=== PATIENT | male | born 1990 | race Caucasian/White ===

== ENCOUNTER 2017-07-25 05:44 | Emergency (ER) | payer SELFPAY ==
[~2017-07-25] VITALS: Ht 188 cm; Wt 95.0 kg
[2017-07-25 05:47] VITALS: BP 127/106; PULSE 107; RESP 20; O2SAT 98
[2017-07-25 05:52] VITALS: BP 138/80; PULSE 92; RESP 14; TEMP 98.2; O2SAT 97
[2017-07-25] MEDS ORDERED: SODIUM CHLORIDE 0.9% FLUSH 10 ML FLUSH IVF PRN (06:00)
[2017-07-25] MEDS ORDERED: LORazepam 2 MG/ML VIAL IV PUSH ONE (06:00)
[2017-07-25 06:16] LABS: AUTOMATED NEUTROPHIL # 7.3 TH/MM3 (1.8-7.7); BASOPHIL # 0.1 TH/MM3 (0-0.2); BASOPHIL % 0.8 % (0.0-2.0); EOSINOPHIL # 0.1 TH/MM3 (0-0.4); EOSINOPHIL % 0.5 % (0.0-4.0); HEMATOCRIT 45.2 % (39.0-51.0); HEMOGLOBIN 15.7 GM/DL (13.0-17.0); LYMPH % 37.7 % (9.0-44.0); LYMPHOCYTE # 5.5 TH/MM3 (1.0-4.8); MEAN CELL VOLUME 88.4 FL (80.0-100.0); MEAN CORPUSCULAR HEMOGLOBIN 30.7 PG (27.0-34.0); MEAN CORPUSCULAR HGB CONC 34.7 % (32.0-36.0); MEAN PLATELET VOLUME 7.3 FL (7.0-11.0); MONO % 10.8 % (0.0-8.0); MONOCYTE # 1.6 TH/MM3 (0-0.9); NEUT % 50.2 % (16.0-70.0); PLATELET COUNT 410 TH/MM3 (150-450); RED BLOOD COUNT 5.12 MIL/MM3 (4.50-5.90); WHITE BLOOD COUNT 14.6 TH/MM3 (4.0-11.0)
--- NOTE | 2017-07-25 06:21 | PD ---
HPI . Overdose/ingestion Chief Complaint: OD/ Ingestion Time Seen by Provider: 05:53 Travel History International Travel<30 days: No Contact w/Intl Traveler<30days: No Traveled to known affect area: No History of Present Illness HPI 26-year-old male used methamphetamine, presents with hallucinating with writhing movements consistent with methamphetamine use. Patient denies suicidal ideations, admits to recreational use. Patient answering questions appropriately intermittently. Patient history of polysubstance abuse including heroin. Patient presents with his friend who states that they have been to rehabilitation many times together [facility] Past Medical History Narrative Medical Poor historian, denies any significant past medical history Medical History: Unable to Obtain Diminished Hearing: No Tetanus Vaccination: Unknown Past Surgical History Surgical History: Unable to Obtain Social History Alcohol Use: Yes Tobacco Use: Yes Substance Use: Yes (herion, meth) Allergies-Medications (Allergen,Severity, Reaction): Coded Allergies: No Known Allergies (Unverified , 07/25/17) Reported Meds & Prescriptions Reported Meds & Active Scripts Active No Active Prescriptions or Reported Medications Narrative Medication Allergies medications reviewed Review of Systems ROS Limitations: Intoxication, Poor Historian General / Constitutional: No: Fever Eyes: No: Visual changes HENT: No: Headaches Cardiovascular: No: Chest Pain or Discomfort Respiratory: No: Shortness of Breath Gastrointestinal: No: Abdominal Pain Genitourinary: No: Dysuria, Incontinence Musculoskeletal: No: Pain Skin: No Rash Neurologic: No: Weakness, Seizures (above as per patient and patient's friend) Psychiatric: No: Depression Endocrine: No: Polydipsia Hematologic/Lymphatic: No: Easy Bruising Physical Exam Narrative GENERAL: Awake and intoxicated, writhing movements, intermittently coherent mild to moderate distress SKIN: Warm and dry. Color slightly flushed HEAD: Atraumatic. Normocephalic. EYES: Pupils equal and round, dilated, no nystagmus No scleral icterus. No injection or drainage. ENT: No nasal bleeding or discharge. Mucous membranes pink and moist. NECK: Trachea midline. No JVD. Supple CARDIOVASCULAR: Regular rate and rhythm. S1-S2 no murmurs rubs or gallops RESPIRATORY: No accessory muscle use. Clear to auscultation. Breath sounds equal bilaterally. GASTROINTESTINAL: Abdomen soft, non-tender, nondistended. Hepatic and splenic margins not palpable. MUSCULOSKELETAL: Extremities without clubbing, cyanosis, or edema. No obvious deformities. NEUROLOGICAL: Awake and intoxicated, coarse writhing movements, following commands intermittently consistent with methamphetamine use PSYCHIATRIC: Clinically intoxicated on methamphetamine, difficult exam. Denies homicidal or suicidal elevations or depression. Denies intentional overdose Data Data Last Documented VS Vital Signs Date Time Temp Pulse Resp B/P (MAP) Pulse Ox O2 Delivery O2 Flow Rate FiO2 07/25/17 05:57 97 Room Air 07/25/17 05:52 98.2 92 14 138/80 (99) Orders Orders Electrocardiogram (07/25/17 05:53) Complete Blood Count With Diff (07/25/17 05:53) Comprehensive Metabolic Panel (07/25/17 05:53) Urinalysis - C+S If Indicated (07/25/17 05:53) Chest, Single Ap (07/25/17 05:53) Iv Access Insert/Monitor (07/25/17 05:53) Ecg Monitoring (07/25/17 05:53) Oximetry (07/25/17 05:53) Lorazepam Inj (Ativan Inj) (07/25/17 06:00) Sodium Chloride 0.9% Flush (Ns Flush) (07/25/17 06:00) Drug Screen, Random Urine (07/25/17 05:53) Alcohol (Ethanol) (07/25/17 05:53) Salicylates (Aspirin) (07/25/17 05:53) Tylenol (Acetaminophen) (07/25/17 05:53) Labs Laboratory Tests Test 07/25/17 06:02 [facility] Medical Decision Making Medical Screen Exam Complete: Yes Emergency Medical Condition: Yes Medical Record Reviewed: Yes Differential Diagnosis Polysubstance abuse, methamphetamine use Narrative Course Patient intoxication methamphetamines, admits to same. Observe Diagnosis Primary Impression: Methamphetamine abuse Additional Impression: Methamphetamine use Scripts No Active Prescriptions or Reported Meds Juan Antonio Johnson MD Jul 25, 2017 06:21
--- NOTE | 2017-07-25 06:47 | RADRPT ---
EXAM DATE/TIME: 07/25/2017 06:15 [place] COMPARISON: No previous studies available for comparison. INDICATIONS : Short of breath. MEDICAL HISTORY : None. SURGICAL HISTORY : None. ENCOUNTER: Initial ACUITY: 1 day PAIN SCORE: 0/10 LOCATION: Bilateral chest FINDINGS: A single view of the chest demonstrates the lungs to be symmetrically aerated without evidence of mas s, infiltrate or effusion. The cardiomediastinal contours are unremarkable. Osseous structures are intact. CONCLUSION: No acute disease. Holger Brewer MD on July 25, 2017 at 6:43 Board Certified Radiologist. This report was verified electronically.
[2017-07-25 06:56] LABS: ATYPICAL LYMPHOCYTES 8 % (0-0); BASOPHILS 1 % (0-2); LYMPHOCYTES 27 % (9-44); MONOCYTES 4 % (0-8); NEUTROPHIL # MANUAL DIFF 8.8 TH/MM3 (1.8-7.7); POLYS (SEG NEUTROPHILS) 60 % (16-70)
[2017-07-25 07:12] LABS: ALBUMIN 4.5 GM/DL (3.4-5.0); ALKALINE PHOSPHATASE 86 U/L (45-117); ALT (GPT) 21 U/L (12-78); AST (GOT) 23 U/L (15-37); BICARBONATE 26.2 MEQ/L (21.0-32.0); BLOOD UREA NITROGEN 24 MG/DL (7-18); CALCIUM 8.9 MG/DL (8.5-10.1); CHLORIDE 102 MEQ/L (98-107); CREATININE 1.51 MG/DL (0.60-1.30); GLOMERULAR FILTRATION RATE 55 ML/MIN (>89); GLUCOSE,RANDOM 111 MG/DL (74-106); SODIUM (NA) 138 MEQ/L (136-145); TOTAL BILIRUBIN ADULT 1.6 MG/DL (0.2-1.0); TOTAL PROTEIN 8.2 GM/DL (6.4-8.2)
[2017-07-25 07:14] LABS: ACETAMINOPHEN LESS THAN 2.0 MCG/ML (10.0-30.0)
[2017-07-25 08:02] VITALS: BP 131/72; PULSE 82; RESP 18; O2SAT 100
--- NOTE | 2017-07-25 09:33 | EKG ---
Date Performed: 07/25/2017 Time Performed: 06:19:57 PTAGE: 26 years EKG: Sinus rhythm MODERATE INTRAVENTRICULAR CONDUCTION DELAY PROLONGED QT INTERVAL ABNORMAL ECG NO PREVIOUS TRACING DOCTOR: Raffaele Hyde Interpretating Date/Time 07/25/2017 09:32:42
[2017-07-25 13:07] VITALS: BP 134/69; PULSE 74; RESP 16; O2SAT 97
--- NOTE | 2017-07-25 15:19 | PD ---
Physical Exam Date Seen by Provider: Jul 25, 2017 Time Seen by Provider: 07:00 Narrative Patient initially seen an evaluated by Dr. Jurado, signed out to me at 7 AM , waiting for medications to wear out add for him to be more sober. Patient admitted to taking uppers. Laboratory Tests Test 07/25/17 06:02 White Blood Count 14.6 TH/MM3 (4.0-11.0) Monocytes (%) (Auto) 10.8 % (0.0-8.0) Lymphocytes # (Auto) 5.5 TH/MM3 (1.0-4.8) Monocytes # (Auto) 1.6 TH/MM3 (0-0.9) Neutrophils # (Manual) 8.8 TH/MM3 (1.8-7.7) Atypical Lymphocytes 8 % (0-0) Blood Urea Nitrogen 24 MG/DL (7-18) Creatinine 1.51 MG/DL (0.60-1.30) Random Glucose 111 MG/DL (74-106) Total Bilirubin 1.6 MG/DL (0.2-1.0) Potassium Level 3.1 MEQ/L (3.5-5.1) Estimat Glomerular Filtration Rate 55 ML/MIN (>89) Salicylates Level LESS THAN 1.7 MG/DL Acetaminophen Level LESS THAN 2.0 MCG/ML Last 24 hours Impressions Chest X-Ray 07/25/17 0553 Signed Impressions: Service Date/Time: Tuesday, July 25, 2017 06:15 - CONCLUSION: No acute disease. Holger Brewer MD On reevaluation at 3 PM, the patient his more awake, oriented, friendly has come in at bedside. He has ambulatory to the ER bathroom without issues. At this point, my plan would be to release the patient with a friend. Return for new issues as needed. Plan has been discussed with the patient he states understanding. Data Data Last Documented VS Vital Signs Date Time Temp Pulse Resp B/P (MAP) Pulse Ox O2 Delivery O2 Flow Rate FiO2 07/25/17 13:53 79 18 97 Room Air 07/25/17 13:07 134/69 (90) 07/25/17 08:02 5.00 07/25/17 05:52 98.2 Orders Orders Electrocardiogram (07/25/17 05:53) Complete Blood Count With Diff (07/25/17 05:53) Comprehensive Metabolic Panel (07/25/17 05:53) Urinalysis - C+S If Indicated (07/25/17 05:53) Chest, Single Ap (07/25/17 05:53) Iv Access Insert/Monitor (07/25/17 05:53) Ecg Monitoring (07/25/17 05:53) Oximetry (07/25/17 05:53) Lorazepam Inj (Ativan Inj) (07/25/17 06:00) Sodium Chloride 0.9% Flush (Ns Flush) (07/25/17 06:00) Drug Screen, Random Urine (07/25/17 05:53) Alcohol (Ethanol) (07/25/17 05:53) Salicylates (Aspirin) (07/25/17 05:53) Tylenol (Acetaminophen) (07/25/17 05:53) Ed Discharge Order (07/25/17 15:13) Labs Laboratory Tests Test 07/25/17 06:02 White Blood Count 14.6 TH/MM3 Red Blood Count 5.12 MIL/MM3 Hemoglobin 15.7 GM/DL Hematocrit 45.2 % Mean Corpuscular Volume 88.4 FL Mean Corpuscular Hemoglobin 30.7 PG Mean Corpuscular Hemoglobin Concent 34.7 % Red Cell Distribution Width 13.0 % Platelet Count 410 TH/MM3 Mean Platelet Volume 7.3 FL Neutrophils (%) (Auto) 50.2 % Lymphocytes (%) (Auto) 37.7 % Monocytes (%) (Auto) 10.8 % Eosinophils (%) (Auto) 0.5 % Basophils (%) (Auto) 0.8 % Neutrophils # (Auto) 7.3 TH/MM3 Lymphocytes # (Auto) 5.5 TH/MM3 Monocytes # (Auto) 1.6 TH/MM3 Eosinophils # (Auto) 0.1 TH/MM3 Basophils # (Auto) 0.1 TH/MM3 CBC Comment AUTO DIFF Differential Total Cells Counted 100 Neutrophils % (Manual) 60 % Lymphocytes % 27 % Monocytes % 4 % Basophils % 1 % Neutrophils # (Manual) 8.8 TH/MM3 Differential Comment FINAL DIFF MANUAL Atypical Lymphocytes 8 % Platelet Estimate NORMAL Platelet Morphology Comment NORMAL Red Cell Morphology Comment NORMAL Blood Urea Nitrogen 24 MG/DL Creatinine 1.51 MG/DL Random Glucose 111 MG/DL Total Protein 8.2 GM/DL Albumin 4.5 GM/DL Calcium Level 8.9 MG/DL Alkaline Phosphatase 86 U/L Aspartate Amino Transf (AST/SGOT) 23 U/L Alanine Aminotransferase (ALT/SGPT) 21 U/L Total Bilirubin 1.6 MG/DL Sodium Level 138 MEQ/L Potassium Level 3.1 MEQ/L Chloride Level 102 MEQ/L Carbon Dioxide Level 26.2 MEQ/L Anion Gap 10 MEQ/L Estimat Glomerular Filtration Rate 55 ML/MIN Salicylates Level LESS THAN 1.7 MG/DL Acetaminophen Level LESS THAN 2.0 MCG/ML Ethyl Alcohol Level LESS THAN 3 MG/DL MDM Medical Record Reviewed: Yes Supervised Visit with SKYLER: No Diagnosis Primary Impression: Methamphetamine abuse Additional Impression: Methamphetamine use Scripts No Active Prescriptions or Reported Meds Disposition: 01 DISCHARGE HOME Condition: Stable Raquel Massey MD Jul 25, 2017 15:19
[2017-07-25] MEDS ORDERED: ONDANSETRON HCL 4 MG/2 ML VIAL IV PUSH ONE (15:45)
[2017-07-25 16:36] VITALS: BP 139/83; PULSE 83; RESP 20; O2SAT 98
== END 2017-07-25 18:53 | disposition home or self-care (01) ==
LOC: NEPC 05:44
DX: F15.10 Other stimulant abuse, uncomplicated (principal); I45.81 Long QT syndrome; R94.31 Abnormal electrocardiogram [ECG] [EKG]; Z72.0 Tobacco use
CPT/HCPCS: 71045; 80053; 80307; 85007; 85027; 93005; 96374; 96375; 99285; J2060; J2405